=== PATIENT | female | born 2000 | race Caucasian/White ===

== ENCOUNTER 2019-11-16 12:42 | Emergency (ER) | payer OTHER, SELFPAY ==
[2019-11-16 12:53] VITALS: BP 126/65; PULSE 80; RESP 16; TEMP 37; O2SAT 98
--- NOTE | 2019-11-16 13:02 | ED.URI ---
HPI - URI/Sore Throat General Chief Complaint: Upper Respiratory Infection Stated Complaint: Ear/Nose/Throat History of Present Illness HPI Narrative: This is a 18-year-old female comes in complaining of a sore throat this morning states she had a low-grade fever denies taking anything for her symptoms. She was worried about having a strep due to somebody in the house was positive for strep yesterday. Had a discussion with patient that she might have come to early and we would send off a culture to confirm Related Data Allergies Allergy/AdvReac Type Severity Reaction Status Date / Time No Known Allergies Allergy Verified 11/16/19 13:05 Review of Systems Review of Systems: Narrative: CONSTITUTIONAL: reports fever, chill clear no she does not have a fever but she patients, or sweats. EYES: Denies visual changes, redness, or discharge. ENT: Denies rhinorrhea, congestion, positive sore throat, or otalgia. CARDIOVASCULAR:Denies chest pain, palpitations, or edema. RESPIRATORY: Denies cough or dyspnea. GASTROINTESTINAL: Denies abdominal pain, nausea, vomiting, or diarrhea. GENITOURINARY: Denies dysuria or hematuria. SKIN:[Denies rash or itching. MUSCULOSKELETAL:Denies back pain, joint pain, or myalgia. NEUROLOGIC: Denies headache, numbness, or weakness. PSYCHIATRIC:Denies anxiety or depression PMFSH Comments At time as signature, I have reviewed and agree with nursing past medical, social, surgical and family history. Please see nursing chart for further information. There is no relevant family history pertinent to the presenting complaint. Exam Narrative: Exam Narrative: GENERAL:Well-appearing, well-nourished, and in no acute distress. HEAD:Normocephalic, atraumatic. EYES: PERRLA and EOMI. ENT: Nares clear, no rhinorrhea or epistaxis. Mucous membranes moist. moderate clear Postnasal drainage NECK: Supple. CHEST: Clear to auscultation. No respiratory distress. HEART: Regular rate and rhythm. No murmur heard. Normal peripheral pulses. ABDOMEN: Soft, nontender, nondistended, normal active bowel sounds. EXTREMITIES: Normal range of motion. No edema. SKIN: Warm, dry, no rash. NEURO: No focal deficits. Alert and oriented x3. Exam looks essentially negative Course Vital Signs Vital signs: Vital Signs Temperature 98.6 F 11/16/19 12:53 Pulse Rate 80 11/16/19 12:53 Respiratory Rate 16 11/16/19 12:53 Blood Pressure 126/65 11/16/19 12:53 Pulse Oximetry 98 11/16/19 12:53 Temperature 98.6 F 11/16/19 12:53 Pulse Rate 80 11/16/19 12:53 Respiratory Rate 16 11/16/19 12:53 Blood Pressure 126/65 11/16/19 12:53 Pulse Oximetry 98 11/16/19 12:53 MDM - URI/Sore Throat Lab Data Labs: Strep Screen Presumptive Negative *(Reference Range: Negative)* Discharge Plan Discharge Clinical Impression: Pharyngitis Qualifiers: Pharyngitis/tonsillitis etiology: unspecified etiology Qualified Code(s): J02.9 - Acute pharyngitis, unspecified Patient Disposition: Home, Self-Care Condition: Stable Instructions: Antibiotic Form, Pharyngitis (ED) Additional Instructions: Your strep test today was negative. A throat culture will be sent to the laboratory for further testing. IF the test is positive, you will receive a phone call within 48 hours and an appropriate antibiotic will be initiated at that time. You will not receive a phone call if the test is negative. Until the throat culture proves otherwise, you should proceed with treating this is as a viral pharyngitis. Salt water gargles may alleviate some of your throat discomfort. Take Tylenol and/or ibuprofen per the package instructions for pain/fever. Go to the ER if your symptoms become worse of if ANY new symptoms develop Prescriptions: New cetirizine [Zyrtec] 10 mg tablet 10 mg PO DAILY PRN (Reason: allergy symptoms) Qty: 30 RF: 0 Follow-up/Referrals: UNKNOWN,DOCTOR [Primary Care Provider] -
== END 2019-11-16 13:25 | disposition home or self-care (01) ==
PROVIDERS: Emergency Provider Nurse Practitioner Family
DX: J02.9 Acute pharyngitis, unspecified (principal)
CPT/HCPCS: 87081; 87880; 99213; G0463

== ENCOUNTER 2020-01-04 09:52 | Emergency (ER) | payer OTHER, SELFPAY ==
[2020-01-04 09:58] VITALS: BP 121/70; PULSE 83; RESP 14; TEMP 36.3; O2SAT 100
--- NOTE | 2020-01-04 10:22 | ED.URI ---
HPI - URI/Sore Throat General Chief Complaint: Upper Respiratory Infection Stated Complaint: sore throat Time Seen by Provider: 01/04/20 10:05 Source: patient and RN notes reviewed Mode of arrival: ambulatory Limitations: no limitations History of Present Illness HPI Narrative: Patient presents today complaining of sore throat, congestion, postnasal drip since yesterday. Denies fever, cough, ear pain, nausea, vomiting, diarrhea, headache. Denies history of seasonal allergies. Currently rates her sore throat 11/16 and has tried no [id number] interventions prior to arrival. Patient tried to go to work today, but was told she needed to come in for evaluation. MD elicited complaint: sore throat Related Data Home Medications Medication Instructions Recorded Confirmed valacyclovir 500 mg PO DAILY 01/04/20 01/04/20 Allergies Allergy/AdvReac Type Severity Reaction Status Date / Time No Known Allergies Allergy Verified 01/04/20 10:08 Review of Systems Review of Systems: Narrative: CONSTITUTIONAL: Denies body aches, fever, chills, or sweats. EYES: Denies visual changes, redness, or discharge. ENT: Denies rhinorrhea, or otalgia.+Congestion, sore throat, postnasal drip CARDIOVASCULAR: Denies chest pain, palpitations, or edema. RESPIRATORY: Denies cough or dyspnea. GASTROINTESTINAL: Denies abdominal pain, nausea, vomiting, or diarrhea. GENITOURINARY: Denies dysuria or hematuria. SKIN: Denies rash, itching, or wounds. MUSCULOSKELETAL: Denies back pain, joint pain, or myalgia. NEUROLOGIC: Denies headache, numbness, tingling, or weakness. PSYCH: Denies depression or anxiety. PMFSH Comments At time of signature, I have reviewed and agree with nursing past medical, surgical, social and family history unless otherwise noted. Please see nursing chart for further information. There is no relevant family history pertinent to the presenting complaint Exam Narrative: Exam Narrative: GENERAL: Well-appearing, well-nourished, and in no acute distress. HEAD: Normocephalic, atraumatic. EYES: EOMI. No redness or drainage. Conjunctivae normal. ENT: Mucous membranes pink and moist. Nares clear. No rhinorrhea. TMs normal bilaterally. Throat normal. Uvula midline. NECK: Normal AROM. Supple. No lymphadenopathy. CHEST: No respiratory distress. Clear to auscultation. HEART: Regular rate and rhythm. No murmur appreciated. Normal peripheral pulses. EXTREMITIES: Normal range of motion. No edema. SKIN: Warm, dry, no rash. Capillary refill normal. Normal skin turgor. NEURO: No focal deficits. Alert and oriented x3. Gait steady. PSYCH: Normal affect. No signs of depression or anxiety. Course Vital Signs Vital signs: Vital Signs Temperature 97.3 F L 01/04/20 09:58 Pulse Rate 83 01/04/20 09:58 Respiratory Rate 14 01/04/20 09:58 Blood Pressure 121/70 01/04/20 09:58 Pulse Oximetry 100 01/04/20 09:58 Temperature 97.3 F L 01/04/20 09:58 Pulse Rate 83 01/04/20 09:58 Respiratory Rate 14 01/04/20 09:58 Blood Pressure 121/70 01/04/20 09:58 Pulse Oximetry 100 01/04/20 09:58 Reviewed. Pt has been instructed to follow up with her PCP regarding her elevated blood pressure today. MDM - URI/Sore Throat Differential Diagnosis Differential diagnosis: Likely upper respiratory infection, otitis media, sinusitis, viral infection, pharyngitis and other (Strep throat) Lab Data Attestation: I reviewed the patient's lab results. Labs: Strep Screen Presumptive Negative *(Reference Range: Negative)* Critical Care Time Critical Care Time Critical Care Time: No Discharge Plan Discharge Clinical Impression: Acute seasonal allergic rhinitis Patient Disposition: Home, Self-Care Condition: Stable Instructions: Allergies (ED) Additional Instructions: Your rapid strep swab was negative today at [facility]. You will be notified in a few days if the culture comes back positive f
== END 2020-01-04 10:30 | disposition home or self-care (01) ==
PROVIDERS: Emergency Provider Nurse Practitioner
DX: J30.2 Other seasonal allergic rhinitis (principal)
CPT/HCPCS: 87081; 87880; 99213; G0463

== ENCOUNTER 2020-03-19 17:07 | Emergency (ER) | payer OTHER, SELFPAY ==
[2020-03-19 17:14] VITALS: BP 138/64; PULSE 87; RESP 16; TEMP 37.2; O2SAT 100
--- NOTE | 2020-03-19 17:35 | ED.GENADULT ---
HPI - General Adult General Chief complaint: Nausea/Vomiting/Diarrhea Stated complaint: diarrhea/fever/nausea Time Seen by Provider: 03/19/20 17:37 Source: patient Mode of arrival: ambulatory Limitations: no limitations History of Present Illness HPI narrative: 19-year-old female patient presents [facility] with complaints of fever and nausea and diarrhea. Patient states that she is currently but has not seen her OB yet. Patient states that her last period was in December. Patient states that she found out on Father's Day that she was . Patient states that she has had some nausea which is not new but recently started having some diarrhea for the past 2 days and then today checked her temperature and states that her temperature was approximately 100.8. Patient states that she did not take anything for her symptoms and came here and states she was told that her temperature was 98. Patient states that she has not been exposed to COVID-19 that she is aware of but still fearful due to the fact that she is and has a fever. Related Data Home Medications Medication Instructions Recorded Confirmed valacyclovir 500 mg PO DAILY 01/04/20 03/19/20 Allergies Allergy/AdvReac Type Severity Reaction Status Date / Time red (food color) Allergy Unknown Verified 03/19/20 17:34 Review of Systems Review of Systems: Narrative: CONSTITUTIONAL: Positive subjective fever, denies chills, or sweats. EYES: Denies visual changes, redness, or discharge. ENT: Denies rhinorrhea, congestion, sore throat, or otalgia. CARDIOVASCULAR: Denies chest pain, palpitations, or edema. RESPIRATORY: Denies cough or dyspnea. GASTROINTESTINAL: Denies abdominal pain, positive nausea, denies vomiting, positive diarrhea. GENITOURINARY: Denies dysuria or hematuria. SKIN: Denies rash or itching. MUSCULOSKELETAL: Denies back pain, joint pain, or myalgia. NEUROLOGIC: Denies headache, numbness, or weakness. PSYCHIATRIC: Denies anxiety or depression. [facility] Social History Social History Gender identity (if verbalized by the patient): Female Comments At the time of my signature I agree with nursing past medical history, surgical, social, and family history. There is no relevant family history pertinent to the presenting complaint. Exam Narrative: Exam Narrative: GENERAL: Well-appearing, well-nourished, and in no acute distress. HEAD: Normocephalic, atraumatic. EYES: PERRLA and EOMI. ENT: Nares clear, no rhinorrhea or epistaxis. Mucous membranes moist. Posterior pharynx no erythema, tonsil enlargement, exudates or lesions present. Bilateral TMs are clear no erythema or foreign bodies in the canal. NECK: Supple. No lymphadenopathy CHEST: Clear to auscultation. No respiratory distress. HEART: Regular rate and rhythm. No murmur heard. Normal peripheral pulses. ABDOMEN: Soft, nontender, nondistended, normal active bowel sounds. No CVA tenderness on percussion EXTREMITIES: Normal range of motion. No edema. SKIN: Warm, dry, no rash. NEURO: No focal deficits. Alert and oriented x3. Course Vital Signs Vital signs: Vital Signs Temperature 37.2 C 03/19/20 17:14 Pulse Rate 87 03/19/20 17:14 Respiratory Rate 16 03/19/20 17:14 Blood Pressure 138/64 03/19/20 17:14 Pulse Oximetry 100 03/19/20 17:14 Temperature 37.2 C 03/19/20 17:14 Pulse Rate 87 03/19/20 17:14 Respiratory Rate 16 03/19/20 17:14 Blood Pressure 138/64 03/19/20 17:14 Pulse Oximetry 100 03/19/20 17:14 Vital signs reviewed. The patient has been informed that they may have pre-hypertension or Hypertension based on a BP reading in the department. I recommend that the patient call the primary care provider listed on their discharge instructions or a physician of their choice this week to arrange follow up for further evaluation of possible pre-hypertension or Hypertension Medical Decision Making
== END 2020-03-19 17:58 | disposition home or self-care (01) ==
PROVIDERS: Emergency Provider Nurse Practitioner Family; PCP Obstetrics & Gynecology
DX: Z20.828 Contact with and (suspected) exposure to other viral communicable diseases (principal); R50.9 Fever, unspecified
CPT/HCPCS: 99213; G0463

== ENCOUNTER 2020-12-05 09:41 | Emergency (ER) | payer OTHER, SELFPAY ==
[2020-12-05 09:50] VITALS: BP 138/78; PULSE 91; RESP 18; TEMP 36.7; O2SAT 100
--- NOTE | 2020-12-05 10:09 | ED.DENTAL ---
HPI - Dental/Oral General Chief complaint: Dental/Oral Stated complaint: Swollen Mouth Time Seen by Provider: 12/05/20 10:10 Source: patient, RN notes reviewed and old records reviewed Mode of arrival: ambulatory Limitations: no limitations History of Present Illness HPI Narrative: 19 year old female who presents to [facility] with complaints of dental pain with increase over the past 1 week duration. Patient is 1 month post and has been taking Ibuprofen and also some left over [place] from her recent section. Patient has impacted wisdom teeth X4 with pain worse on right side and facial swelling noted. Patient has swelling and redness of gums surrounding back wisdom teeth with right side with noted abscess, no drainage noted. Patient able to control own secretions with no difficulty swallowing or any shortness of breath, no trismus noted. MD Complaint: tooth pain Location: Tooth # ([id number],32,[id number]) Onset (ago): week(s) (1) Duration: constant Severity: severe Severity scale (1-10): 10 Relieving factors: nothing Exacerbating factors: chewing and cold Context: history of dental caries and poor dental care Treatment prior to arrival: oral analgesic Related Data Home Medications Medication Instructions Recorded Confirmed valacyclovir 500 mg PO DAILY 01/04/20 12/05/20 Allergies Allergy/AdvReac Type Severity Reaction Status Date / Time red (food color) Allergy Unknown Verified 03/19/20 17:34 Review of Systems Review of Systems: Narrative: CONSTITUTIONAL: States low grade fever yesterday of 100.6F, no chills, or sweats. EYES: Denies visual changes, redness, or discharge. ENT: Denies rhinorrhea, congestion, sore throat, or otalgia positive for dental pain and facial swelling to right side of face. CARDIOVASCULAR: Denies chest pain, palpitations, or edema. RESPIRATORY: Denies cough or dyspnea. GASTROINTESTINAL: Denies abdominal pain, nausea, vomiting, or diarrhea. GENITOURINARY: Denies dysuria or hematuria. SKIN: Denies rash or itching. MUSCULOSKELETAL: Denies back pain, joint pain, or myalgia. NEUROLOGIC: Denies headache, numbness, or weakness. PSYCHIATRIC: Denies anxiety or depression. All systems reviewed & are unremarkable except as noted in HPI and below PMFSH Past Medical History Medical History (Updated 12/06/20 @ 00:00 by Background Daemon) Genital herpes Surgical History Surgical History (Updated 12/05/20 @ 10:26 by Anastacia Braga NP) Previous section Family History Family History (Updated 12/09/20 @ 08:21 by Anastacia Braga NP) Other No significant family history Social History Social History (Updated 12/05/20 @ 10:50 by Anastacia Braga NP) Smoking status: Never smoker Alcohol intake: current Alcohol use details: rare social Substance use: never Living arrangements: with family Gender identity (if verbalized by the patient): Female Comments At time of signature, agree with nursing past medical, surgical, social and family history. There is no relevant family history pertinent to the presenting complaint Exam Narrative: Exam Narrative: GENERAL: Well-appearing, well-nourished, and in no acute distress. HEAD: Normocephalic, atraumatic. EYES: PERRLA and EOMI. ENT: Nares clear, no rhinorrhea or epistaxis. Mucous membranes moist.TM's normal with good light reflex, throat pink with no swelling or tonsil enlargement, impaction of all 4 wisdom teeth with pain increase to right upper and lower greater that left with facial swelling noted. Abscess of right upper and lower wisdom teeth noted, no Sergio angina noted or trismus noted, patient is able to control own secretions NECK: Supple.no lymphadenopathy CHEST: Clear to auscultation. No respiratory distress.SAO2 100% on room air. HEART: Regular rate and rhythm. No murmur heard. Normal peripheral pulses. ABDOMEN: Soft, nontender, nondistended, normal active bowel sounds. EXTREMITIES: Normal range of motion. No edema
== END 2020-12-05 10:46 | disposition home or self-care (01) ==
PROVIDERS: Emergency Provider Registered Nurse
DX: O99.63 Diseases of the digestive system complicating the puerperium (principal); K04.7 Periapical abscess without sinus
CPT/HCPCS: 99213; G0463

== ENCOUNTER → 2022-04-30 10:02 | Outpatient (CLI) | payer OTHER, SELFPAY ==
--- NOTE | ~2022-04-30 | US_ITS ---
EXAMINATION: US OB <= 14 weeks fetus DATE: 04/30/2022 10:29 INDICATION: First trimester dating and viability assessment TECHNIQUE: Real-time pelvic transabdominal and transvaginal ultrasound was performed. COMPARISON: None. FINDINGS: The uterus measures 12.3 x 6.2 x 8.0 cm. There is an intrauterine gestational sac. A yolk sac is identified. heart motion is identified measuring 171 beats per minute (bpm) by M-mode Do ppler. The crown rump length measures 5.0 cm , which correlates with an estimated gestational a ge of 11 weeks and 5 day(s) (+/-) 7 day(s). The right ovary measures 2.1 x 1.5 x 2.5 cm. The left ovary measures 2.2 x 1.5 x 1.7 cm. There is nor mal vascular flow in the ovaries. There is no free fluid in the pelvis. IMPRESSION: 1. Live intrauterine with an estimated gestational age of 11 weeks and 5 day(s) (+/-) 7 day (s) and an estimated delivery date of 11/14/2022. Reviewed, dictated and finalized at location B. IMPRESSION: 1. Live intrauterine with an estimated gestational age of 11 weeks an d 5 day(s) (+/-) 7 day(s) and an estimated delivery date of 11/14/2022.
== END ==
PROVIDERS: PCP Obstetrics & Gynecology; Visit Provider Obstetrics & Gynecology
DX: O36.8910 Maternal care for other specified fetal problems, first trimester, not applicable or unspecified (principal); Z3A.11 11 weeks gestation of pregnancy
CPT/HCPCS: 76801

== ENCOUNTER → 2022-06-19 09:33 | Outpatient (CLI) | payer OTHER, SELFPAY ==
--- NOTE | ~2022-06-19 | US_ITS ---
EXAMINATION: US OB /maternal detail DATE: 06/19/2022 10:42 INDICATION: Second trimester anatomic survey TECHNIQUE: Real-time ultrasound of the pelvis was performed. COMPARISON: None. FINDINGS: There is a single living fetus in transverse lie. The placenta is posterior and 5.9 cm from the inter nal cervical os. The cervical length is 5.7 cm. heart rate is 154 beats per minute (bpm). Feta l cardiac activity and movement are noted. The amniotic fluid index is subjectively normal. The examination is slightly limited by the patient's body habitus. There is suboptimal evaluation of the heart, spine, and urinary bladder. The following anatomy was identified as normal: 3 vessel cord cord insertion kidneys stomach diaphragm ventricles cisterna magna cerebellum The following biometric data were obtained: Biparietal diameter (BPD): 4.0 cm; head circumference (HC): 15.8 cm; abdominal circumference (AC): 13 .5 cm; femur length (FL): 2.9 cm. Estimated weight is 263 g +/- 39 g, which correlates with the 25th percentile when 11/11/2022 is used as estimated date of delivery. As single measurements, these parameters are each equal to the following estimated gestational ages w ith ranges of +/- 2 standard deviations: BPD: 18 weeks 1 days +/- 1 weeks 5 days. HC: 18 weeks 5 days +/- 1 weeks 3 days. AC: 19 weeks 0 days +/- 2 weeks 0 days. FL: 18 weeks 6 days +/- 1 weeks 6 days. estimated gestational age based solely on measurements from this exam is 18 weeks 5 days +/- 1 weeks 2 days. IMPRESSION: 1. Single living fetus in transverse lie. 2. Estimated weight is 263 g +/- 39 g, which correlates with the 25th percentile when 11/11/2022 is used as estimated date of delivery. 3. Suboptimal evaluation of the heart, spine, and urinary bladder. Reviewed, dictated and finalized at location A. IMPRESSION: 1. Single living fetus in transverse lie. 2. Estimated weight is 263 g +/- 39 g, which correlates with the 25th per centile when 11/11/2022 is used as estimated date of delivery. 3. Suboptimal evaluation of the heart, spine, and urinary bladder.
== END ==
PROVIDERS: PCP Obstetrics & Gynecology; Visit Provider Obstetrics & Gynecology
DX: Z34.92 Encounter for supervision of normal pregnancy, unspecified, second trimester (principal); Z3A.18 18 weeks gestation of pregnancy
CPT/HCPCS: 76805

== ENCOUNTER 2022-06-19 10:19 | Emergency (ER) | payer OTHER, SELFPAY ==
--- NOTE | ~2022-06-19 | XR_ITS ---
EXAMINATION: XR foot RT min 3V DATE: 06/19/2022 10:58 INDICATION: Right foot pain. TECHNIQUE: 4 views of right foot were obtained. COMPARISON: None. FINDINGS: Bone alignment is normal. No fracture. Joint spaces are well maintained. IMPRESSION: 1. Normal right foot. Reviewed, dictated and finalized at location A. IMPRESSION: 1. Normal right foot.
[2022-06-19 10:30] VITALS: BP 113/70; PULSE 85; RESP 16; TEMP 36.4; O2SAT 99
--- NOTE | 2022-06-19 10:47 | ED.LOWEXIN ---
HPI - Extremity Injury (Lower) General Chief Complaint: Extremity Injury, Lower Stated Complaint: rt ankle/foot injury Source: patient Mode of arrival: wheelchair Limitations: no limitations History of Present Illness HPI Narrative: This is a 21-year-old female who was within her first trimester of who states she had a fall this morning and twisted her ankle and heard a pop. Patient denies taking anything for her symptoms says that her foot hurts when she applies pressure and she would like an x-ray. Had a discussion with patient and she is able to move her right foot good circulation Splane the risk of x-ray due to the radiation patient and her mother would like for her to have x-ray at this time. Patient willing to sign paperwork. Related Data Allergies Allergy/AdvReac Type Severity Reaction Status Date / Time red (food color) Allergy Unknown Verified 03/19/20 17:34 Review of Systems Review of Systems: left ankle pain All systems reviewed & are unremarkable except as noted in HPI and below PMFSH Past Medical History Medical History (Updated 06/19/22 @ 10:55 by Chris Jones NP) Genital herpes Surgical History Surgical History (Updated 12/05/20 @ 10:26 by Anastacia Braga NP) Previous section Family History Family History (Updated 12/09/20 @ 08:21 by Anastacia Braga NP) Other No significant family history Social History Social History (Updated 12/05/20 @ 10:50 by Anastacia Braga NP) Smoking status: Never smoker Alcohol intake: current Alcohol use details: rare social Substance use: never Gender identity (if verbalized by the patient): Female Exam Narrative: GENERAL:Well-appearing, well-nourished, and in no acute distress. HEAD:Normocephalic, atraumatic. EYES: PERRLA ENT: Nares clear, no rhinorrhea or epistaxis. Mucous membranes moist. CHEST: Easy rise and fall of chest wall no respiratory distress. HEART: Regular rate and rhythm. decreased peripheral pulses. Painfulness with ambulation ABDOMEN: Soft, nontender, nondistended, . EXTREMITIES:decreased range of motion. No edema. SKIN: Warm, dry, no rash. NEURO: No focal deficits. Alert and oriented x3. Patient currently had a conversation with patient and about radiation exposure to child in first trimester Course Course Emergency Course: Xray no acute abnormalities noted Level of Care: Express Care Visit Vital Signs Vital signs: Vital Signs Temperature 97.6 F 06/19/22 10:30 Pulse Rate 85 06/19/22 10:30 Respiratory Rate 16 06/19/22 10:30 Blood Pressure 113/70 06/19/22 10:30 Pulse Oximetry 99 06/19/22 10:30 Temperature 97.6 F 06/19/22 10:30 Pulse Rate 85 06/19/22 10:30 Respiratory Rate 16 06/19/22 10:30 Blood Pressure 113/70 06/19/22 10:30 Pulse Oximetry 99 06/19/22 10:30 MDM - Extremity Injury (Lower) Differential Diagnosis Differential diagnosis: Likely ankle sprain and strain, fracture of toe and ankle fracture Critical Care Time Critical Care Time Critical Care Time: No Discharge Plan Discharge Clinical Impression: Ankle sprain and strain Patient Disposition: Home, Self-Care Condition: Stable Instructions: Antibiotic Form, Ankle Sprain (DC) Additional Instructions: TYLENOL FOR THE PAIN DUE TO YOUR THAT IS ALL I ADVISE FOR PAIN RANDY WRAP CONTINUE TO STAY OFF LEG MUCH POSSIBLE FOLLOW UP WITH pcp IF YOUR FOOT CONTINUES TO BOTHER YOU IN 2-4 WEEKS WE COMPLETED A XRAY WHICH SHOW A NORMAL XRAY AT THIS TIME Follow-up/Referrals: UNKNOWN,DOCTOR [Primary Care Provider] - Stand Alone Forms: Work/School Release IP Time of Disposition: :16
== END 2022-06-19 11:27 | disposition home or self-care (01) ==
PROVIDERS: Emergency Provider Nurse Practitioner Family
DX: O9A.211 Injury, poisoning and certain other consequences of external causes complicating pregnancy, first trimester (principal); Z3A.00 Weeks of gestation of pregnancy not specified; S93.401A Sprain of unspecified ligament of right ankle, initial encounter; S96.911A Strain of unspecified muscle and tendon at ankle and foot level, right foot, initial encounter; W19.XXXA Unspecified fall, initial encounter
CPT/HCPCS: 73630; 99213; G0463

== ENCOUNTER → 2022-08-07 10:51 | Outpatient (CLI) | payer OTHER, SELFPAY ==
--- NOTE | ~2022-08-07 | US_ITS ---
EXAMINATION: US OB follow up DATE: 08/07/2022 11:29 INDICATION: Suboptimal anatomic survey. TECHNIQUE: Real-time ultrasound of the pelvis was performed. COMPARISON: Ultrasound 06/19/2022, 04/30/2022 FINDINGS: There is a single living fetus in transverse lie. The placenta is posterior, 9.9 cm from the cervix. The cervical length is normal. heart rate is 150 beats per minute (bpm). The amniotic fluid vo lume is subjectively normal. The following biometric data were obtained: Biparietal diameter (BPD): 6.1 cm; head circumference (HC): 22.7 cm; abdominal circumference (AC): 20 .5 cm; femur length (FL): 4.8 cm. These measurements are concordant. Estimated weight is 798 g +/- 120 g, which correlates with the 10th percentile when 11/11/22 is u sed as estimated date of delivery. As single measurements, these parameters are each equal to the following estimated gestational ages: BPD: 24 weeks 5 days. HC: 24 weeks 5 days. AC: 25 weeks 0 days. FL: 26 weeks 0 days. estimated gestational age based solely on measurements from this exam is 25 weeks 1 days +/- 1 weeks 5 days. The heart is normal. The visualized portions of the spine are normal. The bladder is norm al. IMPRESSION: 1. Single living fetus in transverse lie. 2. Estimated weight is 798 g +/- 120 g, which correlates with the 10th percentile when 11/11/22 is used as estimated date of delivery. Note that estimated date of delivery based on the ultrasound f rom 04/30/2022 would be 11/14/2022. 3. Normal heart, spine, and bladder. Reviewed, dictated and finalized at location A. IREMENTS ANALYST IMPRESSION: 1. Single living fetus in transverse lie. 2. Estimated weight is 798 g +/- 120 g, which correlates with the 10th p ercentile when 11/11/22 is used as estimated date of delivery. Note that estimate d date of delivery based on the ultrasound from 04/30/2022 would be 11/14/2022. 3. Normal heart, spine, and bladder.
== END ==
PROVIDERS: PCP Obstetrics & Gynecology; Visit Provider Obstetrics & Gynecology
DX: Z34.93 Encounter for supervision of normal pregnancy, unspecified, third trimester (principal)
CPT/HCPCS: 76816

== ENCOUNTER 2025-02-02 15:55 | Outpatient (CLI) | payer OTHER, SELFPAY ==
--- NOTE | ~2025-02-02 | US_ITS ---
EXAM EXAMINATION: US OB follow up DATE: 02/02/2025 20:30 CDT INDICATION: Dating. No prior ultrasound. COMPARISON: 10/09/2024 and 09/08/2024 TECHNIQUE: Real-time transabdominal obstetric ultrasound. FINDINGS: 8 para 3 Last menstrual period is given as 09/19/2024 Estimated date of delivery by last menstrual period is 06/26/2025 There is a single intrauterine gestation in variable presentation. The placenta is anterior, without placenta previa Dynamic images of the cervix were not on the submitted images. cardiac activity and movement is noted with a heart rate of 143 beats per minute. The following biometric data were obtained: Biparietal diameter (BPD): 4.4 cm; head circumference (HC): 18.1 cm; abdominal circumference (AC): 15.11 cm; femur length (FL): 2.9 cm. These measurements are concordant. Estimated weight is 311.1 g +/- 46.7 g, which correlates with the 65th percentile when 06/24/20 25 is used as estimated date of delivery. As single measurements, these parameters are each equal to the following estimated gestational ages: BPD: 19 weeks 2 days. HC: 20 weeks 3 days. AC: 20 weeks 2 days. FL: 19 weeks 0 days. estimated gestational age based solely on measurements from this exam is 19 weeks 5 days +/- 1 week 3 days. IMPRESSION: Single intrauterine gestation in variable presentation with cardiac activity identified. Approximate gestational age is 19 weeks and 5 days Reviewed, dictated and finalized at location A. IMPRESSION: Single intrauterine gestation in variable presentation with cardiac activ ity identified. Approximate gestational age is 19 weeks and 5 days
--- OUTSIDE RECORDS SUMMARY | 2025-02-02 15:58 | XMS_ITS | Clinical Summary ---
Author Organization [facility] [address] [place] [address] Care Team Providers Care Bed Bug Exterminator Name Role Phone Unavailable Primary Care Provider Unavailabl e Source Comments [facility],non-owned Affiliates and Associated Physician Practices is amultiple site organization consisting of ambulatory clinics and hospital sitesin [place], [place], [place] and [place]. This disclosure is being madepursuant to the Care Everywhere program and may not contain all information available regarding this patient. Last updated 18.[facility] Allergies Active Allergy Reactions Criticality Noted Date Comments Red Dye Urticaria Medium 07/29/2020 Shellfish Allergy Rash Medium 07/29/2020 Medications * Be aware that medications may not be up to date on this document. Alwaysverify current medications with the patient. PARoxetine (PAXIL) 10 MG tabletIndication s:Generalized Anxiety Disorder Take 10 mg by mouth once daily Reasons: Generalized Anxiety Disorder Active Vit-Fe Fumarate-FA ( VITAMIN) 28-0.8 MG tablet Take 1 tablet by mouth once daily Active valACYclovir (VALTREX) 1 GM tablet Take 500 mg by mouth every 12 hours Active terconazole (TERAZOL 3) 80 MG vaginal suppository Insert 1 suppository into the vagina at bedtime Active Active Problems Problem Noted Date Diagnosed Date Encounter for anatomic survey 07/29/2020 Overview (07/29/2020): Order for malformation screen: heart, face, kidneys not seen on outside scan. 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 Body Mass Index - - Plan of Treatment Health Maintenance Due Date Last Done Comments HIV SCREENING 2013 HPV VACCINE (1 - 3-dose series) 2013 HEPATITIS C SCREENING 12/18/2016 DTAP/TDAP/TD VACCINES (1 - Tdap) 2017 HEPATITIS B VACCINE (1 of 3 - 19+ 3-dose series) 2017 COVID-19 VACCINE (1 - 2023- season) 2024 DEPRESSION SCREENING 09/09/2024 INFLUENZA VACCINE (Season Ended) 2025 07/15/2013, 06/07/2011, 08/15/2010, Additional history exists ZOSTER VACCINE (1 of 2) 2048 HIB VACCINE Aged Out No longer eligi ble based on patient's age to complete this topic MENINGOCOCCAL (Group B) VACCINE SHARED DECISION-MAKING Aged Out No longer eligible based on patient's age to complete this topic MENINGOCOCCAL GROUPS A/C/Y/W VACCINE Aged Out No longer eligible based on patient's age to complete this topic PNEUMOCOCCAL VACCINE Aged Out No long er eligible based on patient's age to complete this topic Insurance [facility]
--- OUTSIDE RECORDS SUMMARY | 2025-02-02 15:58 | XMS_ITS | Referral Summary ---
Author Organization [facility] Address [address] [place] [address] Care Team Providers Care Hotel Office Manager Name Role Phone Rah Hein MD Primary Care Provider Carlos Rizzo MD Unavailable [phone] Bernice Borrego NP Unavailable [phone] Allergies Active Allergy Reactions Criticality Noted Date Comments Red Dye Unknown 09/18/2019 Montelukast Rash Medium 12/27/2023 Medications etonogestreL-et hinyl estradioL (NUVARING, ELURYNG) 0.12-0.015 mg/24 hr vaginal ring INSERT 1 RING VAGINALLY EVERY MONTH 3 Active buPROPion XL (WELLBUTRIN XL) 150 mg 24 hr tablet Take 1 tablet (150 mg total) by mouth every morning 4 Active ARIPiprazole (ABILIFY) 15 mg tablet 1 tablet (15 mg total) 4 Active Active Problems Problem Noted Date Diagnosed Date Bipolar affective disorder, current episode mixe d 06/25/2024 Overview (06/25/2024): Managed by Psychiatry Assessment & Plan (06/25/2024 10:03 AM CDT): - chronic condition - has diagnosis of depression, anxiety, Bipolar disorder - depression and depression, mood instability not at goal - reports past history of PTSD (from childhood trauma), anxiety, depression and Bipolar disorder - used to do counseling via [facility], she is now doing counseling through a [facility]ism funded program - once a week - currently not on any medications but would like assistance with it - has not been on medication in 5-7 years and only was on medications briefly - hx of hospitalization for self harm attempt at age 15 - has been on Prozac 20 mg daily in past but no longer, no longer on Topamax 50 mg daily - currently on Abilify 15 mg daily and Wellbutrin - at times has alcohol overuse and over eating with emotional changes - she has had period of times that she has stopped her medications several times which she is aware of the issue in bipolar disorder --> as a results of this her Abilify will be changed into an injectable medication - Continue current management per psychiatry Allergic rhinitis 11/15/2023 Overview (11/15/2023): - started Singulair 11/30 - see my chart message Abnormal bruising 10/04/2023 Assessment & Plan (10/04/2023 1:47 PM ENDOSCOPE TECHNICIAN): -new complaint, acute -patient reports she 1st noticed this in the past week or so -denies any trauma to have caused bruising on legs, but does report her massages her legs most nights -denies any significant use of NSAIDs, but does report using melatonin 1-2 nights a week -lab work from 7 months ago looked normal, but will recheck blood counts and some vitamin levels for abnormalities Paresthesia of both lower extremities 10/04/2023 Assessment & Plan (10/04/2023 1:50 PM ENDOSCOPE TECHNICIAN): -new complaint, chronic -patient reports numbness and tingling in bilateral lower extremities after sitting for long periods of time, which when she stands up makes it difficult to walk -patient reports when she gets up and moving around the numbness and tingling subsides -patient reports history issues with sciatica when -patient encouraged to avoid sitting for long periods of time and if this becomes more frequently we can consider further management for it Family history of colon cancer in mother 024 Assessment & Plan (06/25/2024 9:58 AM CDT): - patient's mother was diagnosed with colon cancer at the age of 46. Maternal grandmother has history of breast as well as cervical cancer. Maternal father has history of lung as well as brain cancer - Recommended - Colonoscopy starting at age 40, or 10 years before the age that the immediate family member was diagnosed with cancer. This would be at age 36 - discussed possibility of Gi referral if she wants another opinion regarding these guidelines/recommendations (done on 01/2024 and on 06/2024) Assessment & Plan (01/12/2024 10:33 PM CDT): - patient's mother was diagnosed with colon cancer at the age of 46. Maternal grandmother has history of breast as well as cervical cancer. Maternal father has history of lung as well as brain cancer - Recommended - Colonoscopy starting at age 40, or 10 years before the age that the immediate family member was diagnosed with cancer. This would be at age 36 - discussed possibility of Gi referral if she wants another opinion regarding these guidelines/recommendations Family history of attention deficit hyperactivity disorder (ADHD) 09/24/2023 Assessment & Plan (01/12/2024 10:30 PM CDT): - concern for ADHD in patient - has family hx of ADHD in father and two younger brothers - established with psychiatry at [facility] but was told she should be off her phentermine as well for better evaluation - see plan under obesity for phentermine dose change Assessment & Plan (09/29/2023 10:34 PM ENDOSCOPE TECHNICIAN): - concern for ADHD in patient - has family hx of ADHD in father and two younger brothers - has an appointment with psychiatry in 2 weeks so will defer management at this time Moderate episode of recurrent major depressive d isorder 07/30/2023 Overview (06/25/2024): Managed by Psychiatry Assessment & Plan (06/25/2024 9:51 AM CDT): - chronic condition - has diagnosis of depression, anxiety, Bipolar disorder - depression and depression, mood instability not at goal - reports past history of PTSD (from childhood trauma), anxiety, depression and Bipolar disorder - used to do [facility] via [facility], she is now doing counseling through a [facility]ism funded program - once a week - currently not on any medications but would like assistance with it - has not been on medication in 5-7 years and only was on medications briefly - hx of hospitalization for self harm attempt at age 15 - has been on Prozac 20 mg daily in past but no longer, no longer on Topamax 50 mg daily - currently on Abilify 15 mg daily and Wellbutrin - at times has alcohol overuse and over eating with emotional changes - she has had period of times that she has stopped her medications several times which she is aware of the issue in bipolar disorder --> as a results of this her Abilify will be changed into an injectable medication - Continue current management per psychiatry Assessment & Plan (01/12/2024 10:38 PM CDT): - chronic condition - depression is better controlled - anxiety is not adequately controlled, worse - reports past history of PTSD (from childhood trauma), anxiety, depression and questionable bipolar disorder which she is being evaluated for along with ADHD - used to do [facility] via [facility], she is now doing counseling through a [facility]ism funded program - once a week - currently not on any medications but would like assistance with it - has not been on medication in 5-7 years and only was on medications briefly - hx of hospitalization for self harm attempt at age 15 - currently on Prozac 20 mg daily, started on last visit with big improvement in depression, she is also on Topamax 50 mg daily, Abilify 5 mg nightly - anxiety is still not at goal - Continue current management per psychiatry Assessment & Plan (09/24/2023 12:02 PM ENDOSCOPE TECHNICIAN): - chronic condition - depression is better controlled - anxiety is not adequately controlled, worse - reports past history of PTSD (from childhood trauma), anxiety, depression and questionable bipolar disorder - used to do counseling via [facility], she is now doing counseling through a [facility]ism funded program - once a week - currently not on any medications but would like assistance with it - has not been on medication in 5-7 years and only was on medications briefly - hx of hospitalization for self harm attempt at age 15 - currently on Prozac 20 mg daily, started on last visit with big improvement in depression - anxiety is still not at goal - has an appointment with a psychiatrist at October 10 in [facility] via her Therapist (states her therapist has a diagnosis for her that she can not treat her for it, has been told she may have ADHD as well by her therapist) - given she is about to see psychiatrist do not recommend initiation a new medication at this time for her anxiety, continue current management Assessment & Plan (07/30/2023 12:43 PM ENDOSCOPE TECHNICIAN): - chronic, worse - reports past history of PTSD (from childhood trauma), anxiety, depression and questionable bipolar disorder - used to do counseling via [facility], she is now doing counseling through a [facility]ism funded program - currently not on any medications but would like assistance with it - has not been on medication in 5-7 years and only was on medications briefly - hx of hospitalization for self harm attempt at age 15 - start Prozac 20 mg daily, can take 10 mg for 2 weeks at first - follow up in 6 weeks Pruritic rash 07/09/2023 Assessment & Plan (07/09/2023 12:06 PM CDT): - new diagnosis - unclear etiology - had a company evaluate her house for dust mites as she has had it before but none was found, told It may be dustmites and planning to get treatment for it - script sent in for steroid use for pruritus in mean time Pain in a tooth or teeth 05/09/2023 Assessment & Plan (05/09/2023 12:53 PM CDT): Continue Ibuprofen 600 mg twice daily as needed with food to avoid stomach upset. Only dental surgeon [facility] for her insurance is several hours away, saving up money. Discussed risk of [facility] NSAID use. Vapes nicotine containing substance 02/24/2023 Assessment & Plan (02/24/2023 3:28 PM CDT): - chronic use, not at goal control of cessation - noted to be using E-cigarette or vaping nicotine containing substance - discussed potential for lung diseases such as Vaping associated lung injury and unknown long -term consequences of Vaping Preventative health care 02/24/2023 Assessment & Plan (06/25/2024 10:01 AM CDT): - New or worsening conditions - obesity - Mental health: no significant psychiatric/mental health conditions affecting her day to day functioning, managing on her own. - Dental health: Recommend regular dental care and cleaning. Discussed importance of regular tooth brushing, flossing, and dental visits. - Nutrition: Stressed importance of moderation in sodium/caffeine intake, saturated fat and cholesterol, caloric balance, sufficient intake of fresh fruits, vegetables - Exercise: Stressed the importance of regular exercise - Immunizations: Age and sex appropriate immunizations reviewed and offered - Cervical Cancer screening: up to date, follows with Dr. Matthias EM - Breast Cancer screening: n/a - Colon cancer screening: n/a - Lung cancer screening: n/a - control: on Nuvaring Assessment & Plan (02/24/2023 3:29 PM CDT): - New or worsening conditions - obesity, and fatigue, see A&P section - Mental health: no significant psychiatric/mental health conditions affecting her day to day functioning, managing on her own. - Dental health: Recommend regular dental care and cleaning. Discussed importance of regular tooth brushing, flossing, and dental visits. - Nutrition: Stressed importance of moderation in sodium/caffeine intake, saturated fat and cholesterol, caloric balance, sufficient intake of fresh fruits, vegetables - Exercise: Stressed the importance of regular exercise - Immunizations: Age and sex appropriate immunizations reviewed and offered - Cervical Cancer screening: up to date, follows with Dr. Matthias EM - Breast Cancer screening: n/a - Colon cancer screening: n/a - Lung cancer screening: n/a - control: on Nuvar Class 3 severe obesity due t o excess calories without serious comorbidity with body mass index (BMI) of 45.0 to 49.9 in adult 02/15/2023 Assessment & Plan (06/25/2024 9:53 AM CDT): Wt Readings from Last 3 Encounters: 06/25/24 119.3 kg (263 lb 1.6 oz) 12/27/23 97.5 kg (214 lb 14.4 oz) 10/04/23 96.6 kg (212 lb 14.4 oz) Body mass index is 48.11 kg/m . - chronic condition, not at goal - worse, weight gain of 50 lbs since being off Phentermine - BMI Follow-up includes: nutrition counseling, exercise counseling and education provided - has tried diet changes, lifestyle modifications for over 6 months without significant success - one of her main issues is food craving and overeating, at times uses food for comfort, at times endorses binge eating - No hx of seizures, no hx of kidneys tones - in past lost weight while on Phentermine 15 mg daily at weight of 263, and got down to 214 lbs 12/2023 - in past got discontinued per psychiatry as she was getting evaluated for ADHD - she plans to let me know after consulting with psychiatry and when she is doing well with her mental health medications, to restart therapy Assessment & Plan (01/12/2024 10:29 PM CDT): Wt Readings from Last 3 Encounters: 12/27/23 97.5 kg (214 lb 14.4 oz) 10/04/23 96.6 kg (212 lb 14.4 oz) 09/24/23 97.5 kg (214 lb 14.4 oz) Body mass index is 39.3 kg/m . - chronic condition, not at goal - BMI Follow-up includes: nutrition counseling, exercise counseling and education provided - has tried diet changes, lifestyle modifications for over 6 months without significant success - one of her main issues is food craving and overeating, at times uses food for comfort, at times endorses binge eating - No hx of seizures, no hx of kidneys tones - started Phentermine 15 mg daily at weight of 263, current weight is 214 12/2023 - currently on Phentermine 30 mg daily --> psychiatry has told her to be off medication as she is hyperactive and getting evaluated for ADHD as well --> change dose to phentermine 15 mg daily, script sent in for 30 days after which she can discontinue medication Assessment & Plan (09/24/2023 12:02 PM ENDOSCOPE TECHNICIAN): Wt Readings from Last 3 Encounters: 09/24/23 97.5 kg (214 lb 14.4 oz) 07/30/23 99.8 kg (220 lb) 07/09/23 102.5 kg (226 lb) Body mass index is 39.3 kg/m . - chronic condition, not at goal but improving, weight loss noted - BMI Follow-up includes: nutrition counseling, exercise counseling and education provided - has tried diet changes, lifestyle modifications for over 6 months without significant success - one of her main issues is food craving and overeating, at times uses food for comfort, at times endorses binge eating - No hx of seizures, no hx of kidneys tones - started Phentermine 15 mg daily at weight of 263, current weight is 214 - currently on Phentermine 30 mg daily, will continue for maximum of 1 year from initiation - continue current therapy since she is progressively losing weight Assessment & Plan (07/30/2023 9:25 AM ENDOSCOPE TECHNICIAN): Wt Readings from Last 3 Encounters: 07/30/23 99.8 kg (220 lb) 07/09/23 102.5 kg (226 lb) 05/09/23 108.9 kg (240 lb) Body mass index is 40.24 kg/m . - chronic condition, not at goal but improving, weight loss noted - BMI Follow-up includes: nutrition counseling, exercise counseling and education provided - has tried diet changes, lifestyle modifications for over 6 months without significant success - one of her main issues is food craving and overeating, at times uses food for comfort, at times endorses binge eating - No hx of seizures, no hx of kidneys tones - started Phentermine 15 mg daily at weight of 263, current weight is 220 - currently on Phentermine 30 mg daily - continue current therapy since she is progressively losing weight Assessment & Plan (07/09/2023 11:53 AM CDT): Wt Readings from Last 3 Encounters: 07/09/23 102.5 kg (226 lb) 05/09/23 108.9 kg (240 lb) 04/08/23 115.3 kg (254 lb 3.2 oz) Body mass index is 41.34 kg/m . - chronic condition, not at goal but improving, significant weight loss noted - BMI Follow-up includes: nutrition counseling, exercise counseling and education provided - interested in weight loss medication - has tried diet changes, lifestyle modifications for over 6 months without significant success - one of her main issues is food craving and overeating, at times uses food for comfort, at times endorses binge eating - No hx of seizures, no hx of kidneys tones - started Phentermine 15 mg daily at weight of 263, current weight is 226 - currently on Phentermine 30 mg daily - continue current therapy since she is progressively losing weight Assessment & Plan (05/09/2023 10:52 AM CDT): Wt Readings from Last 3 Encounters: 05/09/23 108.9 kg (240 lb) 04/08/23 115.3 kg (254 lb 3.2 oz) 03/06/23 119.3 kg (263 lb) Body mass index is 43.9 kg/m . - chronic condition, not at goal but improving, weight loss noted - BMI Follow-up includes: nutrition counseling, exercise counseling and education provided - interested in weight loss medication - has tried diet changes, lifestyle modifications for over 6 months without significant success - one of her main issues is food craving and overeating, at times uses food for comfort, at times endorses binge eating - No hx of seizures, no hx of kidneys tones - started Phentermine 15 mg daily at weight of 263 - currently on Phentermine 30 mg daily - continue current therapy Assessment & Plan (04/08/2023 11:03 AM CDT): HPI: Condition is improving, but not at goal goal BMI <30 A&P: Healthy, high-protein, lower carbohydrate, lower fat lifestyle and exercise for 150min/week recommended Recommend tracking everything you put in your mouth on an [employer] like [employer] -patient is down 9 lbs since starting on the [place]termine [place] instances of [place] noted -increase to phentermine 30 mg daily. Script sent. -follow up in 1 month with PCP Assessment & Plan (03/06/2023 12:23 PM CDT): Wt Readings from Last 3 Encounters: 03/06/23 119.3 kg (263 lb) 02/15/23 118.8 kg (262 lb) 11/05/22 123.8 kg (273 lb) Body mass index is 48.1 kg/m . - chronic condition, not at goal - BMI Follow-up includes: nutrition counseling, exercise counseling and education provided - interested in weight loss medication - has tried diet changes, lifestyle modifications for over 6 months without significant success - one of her main issues is food craving and overeating, at times uses food for comfort, at times endorses binge eating - No hx of seizures, no hx of kidneys tones - start Phentermine 15 mg daily and follow up in 30 days Assessment & Plan (02/24/2023 3:34 PM CDT): Wt Readings from Last 3 Encounters: 02/15/23 118.8 kg (262 lb) 11/05/22 123.8 kg (273 lb) 07/16/21 117 kg (258 lb) Body mass index is 47.92 kg/m . - chronic condition, not at goal - BMI Follow-up includes: nutrition counseling, exercise counseling and education provided - interested in weight loss medication - has tried diet changes, lifestyle modifications for over 6 months without significant success - one of her main issues is food craving and overeating, at times uses food for comfort, at times endorses binge eating - No hx of seizures, no hx of kidneys tones PTSD (post-traumatic stress disorder) 02/15/2023 Assessment & Plan (03/06/2023 1:35 PM CDT): - chronic, not at goal - reports past history of PTSD (from childhood trauma), anxiety, depression and bipolar disorder - used to do counseling via [facility] in remote past but would like in person counseling - currently not on any medications - at times gets depressed mood but feels like she is functioning well without additional help - she is interested in counseling/therapy at first, provided a location to seek help in this matter Assessment & Plan (02/24/2023 3:25 PM CDT): - chronic, stable - reports past history of PTSD (from childhood trauma), anxiety, depression and bipolar disorder - used to do counseling via [facility] in remote past - currently not on any medications - at times gets depressed mood but feels like she is functioning well without additional help REGINE (generalized anxiety disorder) 02/15/2023 Overview (06/25/2024): Managed by Psychiatry Assessment & Plan (06/25/2024 9:50 AM CDT): - chronic condition - has diagnosis of depression, anxiety, Bipolar disorder - depression and depression, mood instability not at goal - reports past history of PTSD (from childhood trauma), anxiety, depression and questionable bipolar disorder which she is being evaluated for along with ADHD - used to do [facility] via [facility], she is now doing counseling through a j[facility]ism funded program - once a week - currently not on any medications but would like assistance with it - has not been on medication in 5-7 years and only was on medications briefly - hx of hospitalization for self harm attempt at age 15 - has been on Prozac 20 mg daily in past but no longer, no longer on Topamax 50 mg daily - currently on Abilify 15 mg daily and Wellbutrin - at times has alcohol overuse and over eating with emotional changes - she has had period of times that she has stopped her medications several times which she is aware of the issue in bipolar disorder --> as a results of this her Abilify will be changed into an injectable medication - Continue current management per psychiatry Assessment & Plan (01/12/2024 10:38 PM CDT): - chronic condition - depression is better controlled - anxiety is not adequately controlled, worse - reports past history of PTSD (from childhood trauma), anxiety, depression and questionable bipolar disorder which she is being evaluated for along with ADHD - used to do [facility] via [facility], she is now doing counseling through a [facility]ism funded program - once a week - currently not on any medications but would like assistance with it - has not been on medication in 5-7 years and only was on medications briefly - hx of hospitalization for self harm attempt at age 15 - currently on Prozac 20 mg daily, started on last visit with big improvement in depression, she is also on Topamax 50 mg daily, Abilify 5 mg nightly - anxiety is still not at goal - Continue current management per psychiatry Assessment & Plan (09/29/2023 10:33 PM ENDOSCOPE TECHNICIAN): - chronic condition - depression is better controlled - anxiety is not adequately controlled, worse - reports past history of PTSD (from childhood trauma), anxiety, depression and questionable bipolar disorder - used to do counseling via [facility], she is now doing counseling through a [facility] funded program - once a week - currently not on any medications but would like assistance with it - has not been on medication in 5-7 years and only was on medications briefly - hx of hospitalization for self harm attempt at age 15 - currently on Prozac 20 mg daily, started on last visit with big improvement in depression - anxiety is still not at goal - has an appointment with a psychiatrist at October 10 in [facility] via her Therapist (states her therapist has a diagnosis for her that she can not treat her for it, has been told she may have ADHD as well by her therapist) - given she is about to see psychiatrist do not recommend initiation a new medication at this time for her anxiety, continue current management Assessment & Plan (07/30/2023 12:43 PM ENDOSCOPE TECHNICIAN): - chronic, worse - reports past history of PTSD (from childhood trauma), anxiety, depression and questionable bipolar disorder - [facility], she is now doing counseling through a jainism funded program - currently not on any medications but would like assistance with it - has not been on medication in 5-7 years and only was on medications briefly - hx of hospitalization for self harm attempt at age 15 - start Prozac 20 mg daily, can take 10 mg for 2 weeks at first - follow up in 6 weeks Assessment & Plan (05/09/2023 12:54 PM CDT): - chronic, stable, with persistent symptoms - reports past history of PTSD (from childhood trauma), anxiety, depression and bipolar disorder - used to do counseling via [facility] in remote past but would like in person counseling - currently not on any medications - at times gets depressed mood but feels like she is functioning well without additional help - recommend counseling - continue current management at this time, not affected with phentermine use Assessment & Plan (03/06/2023 12:23 PM CDT): - chronic, not at goal - reports past history of PTSD (from childhood trauma), anxiety, depression and bipolar disorder - used to do counseling via [facility] in remote past but would like in person counseling - currently not on any medications - at times gets depressed mood but feels like she is functioning well without additional help - she is interested in counseling/therapy at first, provided a location to seek help in this matter Assessment & Plan (02/24/2023 3:25 PM CDT): - chronic, stable - reports past history of PTSD (from childhood trauma), anxiety, depression and bipolar disorder - used [facility] do [facility] past - currently not on any medications - at times gets depressed mood but feels like she is functioning well without additional help Resolved Problems Problem Noted Date Diagnosed Date Resolved Date Class 2 obesity due to exces s calories with body mass index (BMI) of 39.0 to 39.9 in adult 10/04/2023 01/12/2024 Assessment & Plan (12/27/2023 8:46 AM CDT): Wt Readings from Last 3 Encounters: 12/27/23 97.5 kg (214 lb 14.4 oz) 10/04/23 96.6 kg (212 lb 14.4 oz) 09/24/23 97.5 kg (214 lb 14.4 oz) Body mass index is 39.3 kg/m . - chronic condition, not at goal - BMI Follow-up includes: nutrition counseling, exercise counseling and education provided - Recommend to exercise at least 30 minutes moderate to vigorous exercise most days of the week. (minimum 150 minutes weekly) Term 11/05/2022 02/15/2023 Delivery with history of section 09/11/2022 02/15/2023 Overview (09/27/2022): Added automatically from request for surgery [id number] Subchorionic hematoma in first trimester 09/21/2019 02/15/2023 Assessment & Plan (09/22/2019 9:41 AM ENDOSCOPE TECHNICIAN): Patient is 6 weeks , noted vaginal bleeding post op OB/ SENIOR BUSINESS BROKER consulted SSE performed with moderate amount of dark red blood in vault (approximately 15-20 cc total in vault and on alfonso pad in bed). Cervix not fully visualized, unable to access if os closed, given patient w/ difficulty tolerating exam. Bimanual exam attempted, unable to palpate cervix. 09/21 Transvaginal ultrasound - IUP at 5w6d based on CRL with positive heart motion. A subchorionic hemorrhage of 12mm was visualized. Acute cholecystitis due to biliary calculus 09/18/2019 02/15/2023 Overview (09/19/2019): Added automatically from request for surgery [id number] Assessment & Plan (09/21/2019 11:06 AM ENDOSCOPE TECHNICIAN): 09/20: OR for lap rubi; very inflamed and oozy; no NSAIDS - CLD and ADAT - stop Zosyn; pain control 09/21 provided a low fat diet Immunizations Immunization Administration Dates Next Due DTaP 06/07/2005, 1,07/07/1999,04/27,02/23/1999 H1N1 All Forms 01/23/2010 HPV, Unspecified 01/23/2010,04/01/2009, 9 Hep A, Ped Unspecified 10/10/2006,03/08/2006 Hep B, Adolescent or Pediatric 0,07/07/1999,04/27/1999,01/20,1998 HiB 12/12/2000, 9,04/27/1999,02/23 IPV 06/07/2005, 1,04/27/1999,02/23 Influenza Nasal, Unspecified 06/07/2011 Influenza, Live, Intranasal, Quadrivalent 07/15/2013 Influenza, Split 08/15/2010 Influenza, Unspecified 06/25/2024(Deferr ed: Patient Refused),07/09/2023(Deferred: Patient Refused),06/09/2022(Deferred: Patient Refused) Influenza, Whole 07/11/2006 MMR 11/03/2020(Deferred: No longer needed),06/07/2005,03/05/2000,01/04/20 00 Meningococcal Conjugate (Menveo) 11/14/2015,04/09 Pneumococcal Conjugate 7-Valent 12/12/2000 Tdap 10/06/2020,11/18/2017,12/24/2008 Varicella 12/24/2008,01/04/2000 Social History Tobacco Use Types Packs/Day Years Used Date Smoking Tobacco: Every Day Cigarettes Last attempted to quit: 12/31/2022 Vaping Started: 12/31 Smokeless Tobacco: Never Tobacco Cessation:Ready to Q uit: No; Counseling Given: Yes Alcohol Use Standard Drinks/Week Comments Not Currently 0 (1 standard drink = 0.6 oz pur e alcohol) last use 09/08/2019 Social Connection and Isolat ion Panel [NHANES] Answer Date Recorded In a typical week, how many times do you talk on the phone with family, friends, or neighbors? More than three times a week 11/05/2022 How often do you get togethe r with friends or relatives? More than three times a week 11/05/2022 How often do you attend chur or voodoo services? More than 4 times per year 11/05/2022 Do you belong to any clubs o r organizations such as jainism groups, unions, fraternal or athletic groups, or school groups? Yes 11/05/2022 How often do you attend meet ings of the clubs or organizations you belong to? 1 to 4 times per year 11/05/2022 Marital Status Not on file 11/05/2022 AUDIT-C Answer Date Recorded Q1: How often do you have a drink containing alc ohol? Monthly or less 06/25/2024 Q2: How many drinks containi ng alcohol do you have on a typical day when you are drinking? 1 or 2 06/25/2024 Q3: How often do you have si x or more drinks on one occasion? Never 06/25/2024 Overall Financial Resource Strain (CARDIA) Answe r Date Recorded How hard is it for you to pa y for the very basics like food, housing, medical care, and heating? Not hard at all 11/05/2022 PHQ-2 Answer Date Recorded PHQ-2 Total Score (If total score is 3 or more points, staff should administer the PHQ-9) 0 06/25/2024 [facility] - Occupational Stress Questionnaire Answer Date Recorded Do you feel stress - tense, restless, nervous, or anxious, or unable to sleep at night because your mind is troubled all the time - these days? Not at all 11/05/2022 Exercise Vital Sign Answer Date Recorde d On average, how many days pe r week do you engage in moderate to strenuous exercise (like a brisk walk)? 4 days 11/05/2022 On average, how many minutes do you engage in exercise at this level? 30 min 11/05/2022 Hunger Vital Sign Answer Date Recorded Within the past 12 months, y ou worried that your food would run out before you got the money to buy more. Never true 11/05/19 23 Within the past 12 months, t he food you bought just didn't last and you didn't have money to get more. Never true 11/05/2022 PRAPARE - Transportation Answer Date Re corded In the past 12 months, has l ack of transportation kept you from medical appointments or from getting medications? No 10/11 In the past 12 months, has l ack of transportation kept you from meetings, work, or from getting things needed for daily living? No 11/05/2022 Housing Stability Vital Sign Answer Darryl e Recorded In the last 12 months, was t here a time when you were not able to pay the mortgage or rent on time? No 11/05/2022 In the last 12 months, how many places have you lived? 1 11/05/2022 In the last 12 months, was t here a time when you did not have a steady place to sleep or slept in a alf (including now)? No 11/05/2022 Personal Safety Answer Date Recorded Getting School Help Needed Denies 08/24 Comments No Sex and Gender Information Value Date Recorded Sex Assigned at Not on file Legal Sex Female 2:46 PM ENDOSCOPE TECHNICIAN Gender Identity Not on file Sexual Orientation Not on file Last Filed Vital Signs Vital Sign Reading Time Taken Comments Blood Pressure 126/84 06/25/2024 9:14 AM CDT Pulse 98 06/25/2024 9:14 AM CDT Temperature 36.8 C (98.2 F) 06/25/2024 9:14 AM CDT Respiratory Rate 16 06/25/2024 9:14 AM CDT Oxygen Saturation 98% 06/25/2024 9:14 AM CDT Inhaled Oxygen Concentration - - Weight 119.3 kg (263 lb 1.6 oz) 06/25/2024 9:14 AM CDT Height 157.5 cm (5' 2.01 ) 06/25/2024 9:14 AM CD T Body Mass Index 48.11 06/25/2024 9:14 AM CDT Plan of Treatment Not on file Procedures Procedure Name Priority Date/Time Associated Diagnosis Comments HEPATITIS C ANTIBODY Routine 02/15/2023 10:27 AM CDT Morbid obesity with BMI of 45.0-49.9, adult (HCC) from Last 3 Months or Most Recently Relevant to Health Maintenance Results * Hepatitis C antibody (02/15/2023 10:27 AM CDT) Hep C Ab Nonreactive Nonreactive [facility]) Comment: Interpretive Data Nonreactive: Antibodies to HCV not detected. Does NOT exclude the possibility of recent exposure to HCV. Equivocal: Equivocal for HCV antibodies. Supplemental molecular testing will be automatically performed to determine infection status in accordance with current CDC screening recommendations. Reactive: Positive for HCV antibodies. This may represent current or past HCV infection. Supplemental molecular testing will be automatically performed to determine current infection status in accordance with current CDC screening recommendations. Interpretive data was last revised on 2019. Testing performed by: [facility], [address] [place] [address]., [id number] Blood 02/15/2023 10:2 7 AM CDT 02/15/2023 5:47 PM CDT Rah Hein MD LAB MICROBIOLOGY - [facility] ORDERABLES Final Result [facility] 1 [facility] [place] [address] from Last 3 Months or Most Recently Relevant to Health Maintenance Insurance [facility] Advance Directives For more information, please contact: [phone] * Full Code (Latest Code Status on File) Date Activated Date Inactivated Comments 11/05/2022 1:23 PM 11/07/2022 4:02 PM * Full Code Date Activated Date Inactivated Comments 11/05/2022 9:51 AM 11/05/2022 1:23 PM Full CPR in case of cardiopulmonary arrest * Full Code Date Activated Date Inactivated Comments 11/01/2020 1:14 PM 11/03/2020 9:05 PM * Full Code Date Activated Date Inactivated Comments 11/01/2020 10:00 AM 11/01/2020 1:14 PM Full CPR in case of cardiopulmonary arrest * Full Code Date Activated Date Inactivated Comments 09/19/2019 12:12 PM 09/22/2019 6:02 PM Care Teams Hotel Office Manager Relationship Specialty Start Date End Date Rah Hein MD PCP - General Family Medicine 02/15/23 Carlos Rizzo MD [address] [facility] [address] [address] Consulting Physician Obstetrics and Gynecology 02/15/23 Bernice Borrego NP [address] [place] [address] Nurse Practitioner Psychiatry 12/27/23
--- OUTSIDE RECORDS SUMMARY | 2025-02-02 15:58 | XMS_ITS | Encounter Summary ---
Author Organization [facility] Address [address] [place] [address] Phone Care Team Providers Care Translator Interpreter Name Role Phone Kristine Jara MD Primary Care Pr ovider Miscellaneous, Not In File Primary Care Provider Unavailable Rah Hein MD Primary Care Provider Carlos Rizzo MD Unavailable [phone] Bernice Borrego NP Unavailable [phone] Encounter Details Date Type Department Care Team (Latest Contact Info) Description 07/25/2017 Orders Only [facility] CONVERSION Scanning, Provider Social History Tobacco Use Types Packs/Day Years Used Date Smoking Tobacco: Never Smokeless Tobacco: Never Alcohol Use Standard Drinks/Week Comments No 0 (1 standard drink = 0.6 oz pur e alcohol) Comments Yes Sex and Gender Information Value Date Recorded Sex Assigned at Not on file Legal Sex Female 2:46 PM COMPUTER CONSULTANT Gender Identity Not on file Sexual Orientation Not on file documented as of this encounter Plan of Treatment Not on file documented as of this encounter Procedures Procedure Name Priority Date/Time Associated Diagnosis Comments OBSTETRIC/GYNECOLOGY ULTRASONOGRAPHY REPORT 07/31/2017 3:35 PM COMPUTER CONSULTANT OBSTETRIC/GYNECOLOGY ULTRASONOGRAPHY REPORT 07/25/2017 8:15 AM COMPUTER CONSULTANT documented in this encounter Results * OBSTETRIC/GYNECOLOGY ULTRASONOGRAPHY REPORT (07/31/2017 3:35 PM COMPUTER CONSULTANT) Anatomical Region Laterality Modality Ultrasound us Provider Scanning IMG OB US PROCEDURES Final Res ult * OBSTETRIC/GYNECOLOGY ULTRASONOGRAPHY REPORT (07/25/2017 8:15 AM COMPUTER CONSULTANT) Anatomical Region Laterality Modality Ultrasound us Provider Scanning IMG OB US PROCEDURES Final Res ult documented in this encounter Visit Diagnoses Not on filedocumented in this encounter Care Teams Translator Interpreter Relationship Specialty Start Date End Date Kristine Jara MD [address] [facility] [place] [address] PCP - General 01/07/17 10/27/19 Miscellaneous, Not In File PCP - General 10/28/19 02/14/23 Rah Hein MD PCP - General Family Medicine 02/15/23 Carlos Rizzo MD [address] [place] [address] [address] [place] [address] Consulting Physician Obstetrics and Gynecology 02/15/23 Bernice Borrego NP [address], [place] [address] Nurse Practitioner Psychiatry 12/27/23 documented as of this encounter
--- OUTSIDE RECORDS SUMMARY | 2025-02-02 15:58 | XMS_ITS ---
Author Organization [facility] Address [address] [place] [address] Phone Care Team Providers Care Mainframe Programmer Analyst Name Role Phone Unavailable Primary Care Provider [facility] Status:Enrolled (Active) Start date:10/07/2024 Enrollment date:10/07/2024 Related social drivers of health:Intimate Partner Violence, Social Connections, Alcohol Use, Tobacco Use, Financial Resource Strain,Depression, Stress, Physical Activity, Food Insecurity, Transportation Needs, Housing Stability, Utilities Continued Care and Services Coordination
--- OUTSIDE RECORDS SUMMARY | 2025-02-02 15:58 | XMS_ITS | CONTINUITY OF CARE DOCUMENT ---
Author Name carlos gonzalez Address Unknown Organization [facility] Address [address] [place] [address] Phone [phone] Care Team Providers Care Central Supply Nurse Name Role Phone Lawrence Gee MD Unavailable [phone] Lawrence Gee MD Unavailable [phone] INSURANCE PROVIDERS Payer name Policy type / Coverage type [employer] ID [employer] MEDICAID Medicaid [id number]
--- OUTSIDE RECORDS SUMMARY | 2025-02-02 15:58 | XMS_ITS | Clinical Summary ---
Author Organization [facility] Address [address] [place] [address] Care Team Providers Care Edi Architect Name Role Phone Rah Heni MD Primary Care Provider Carlos Rizzo MD Unavailable [phone] Bernice Borrego NP Unavailable [phone] Allergies Active Allergy Reactions Criticality Noted [...] she is now doing counseling through a methodist funded program - once a week - [...] 10/04/2023 Assessment & Plan (10/04/2023 1:47 PM ASIC VERIFICATION ENGINEER): -new complaint, acute -patient reports she 1st [...] 10/04/2023 Assessment & Plan (10/04/2023 1:50 PM ASIC VERIFICATION ENGINEER): -new complaint, chronic -patient reports numbness and [...] younger brothers - established with psychiatry at [facility] but was told she should be off her phentermine as well for better evaluation - see plan under obesity for phentermine dose change Assessment & Plan (09/29/2023 10:34 PM ASIC VERIFICATION ENGINEER): - concern for ADHD in patient - [...] she is now doing counseling through a methodist funded program - once a week - [...] she is now doing counseling through a methodist funded program - once a week - [...] psychiatry Assessment & Plan (09/24/2023 12:02 PM ASIC VERIFICATION ENGINEER): - chronic condition - depression is better controlled - anxiety is not adequately controlled, worse - reports past history of PTSD (from childhood trauma), anxiety, depression and questionable bipolar disorder - used to do [facility] via [facility], she is now doing counseling through a [facility] funded program - once a week - [...] with a psychiatrist at October 10 in [facility] via her Therapist (states her therapist has a diagnosis for her that she can not treat her for it, has been told she may have ADHD as well by her therapist) - given she is about to see psychiatrist do not recommend initiation a new medication at this time for her anxiety, continue current management Assessment & Plan (07/30/2023 12:43 PM ASIC VERIFICATION ENGINEER): - chronic, worse - reports past history of PTSD (from childhood trauma), anxiety, depression and questionable bipolar disorder - used to do counseling via [facility], she is now doing counseling through a [facility]ist funded program - currently not on any [...] away, saving up money. Discussed risk of jail NSAID use. Vapes nicotine containing substance 02/24/2023 [...] medication Assessment & Plan (09/24/2023 12:02 PM ASIC VERIFICATION ENGINEER): Wt Readings from Last 3 Encounters: 09/24/23 [...] weight Assessment & Plan (07/30/2023 9:25 AM ASIC VERIFICATION ENGINEER): Wt Readings from Last 3 Encounters: 07/30/23 [...] in your mouth on an edgardo like [employer] / [employer] -patient is down 9 lbs since starting [...] she is now doing counseling through a methodist funded program - once a week - [...] she is now doing counseling through a methodist funded program - once a week - [...] psychiatry Assessment & Plan (09/29/2023 10:33 PM ASIC VERIFICATION ENGINEER): - chronic condition - depression is better controlled - anxiety is not adequately controlled, worse - reports past history of PTSD (from childhood trauma), anxiety, depression and questionable bipolar disorder - used to do [facility] via [facility], she is now doing counseling through a methodist funded program - once a week - [...] with a psychiatrist at October 10 in [facility] via her Therapist (states her therapist has a diagnosis for her that she can not treat her for it, has been told she may have ADHD as well by her therapist) - given she is about to see psychiatrist do not recommend initiation a new medication at this time for her anxiety, continue current management Assessment & Plan (07/30/2023 12:43 PM ASIC VERIFICATION ENGINEER): - chronic, worse - reports past history of PTSD (from childhood trauma), anxiety, depression and questionable bipolar disorder - [facility], she is now doing counseling through a [facility] funded program - currently not on any [...] disorder - [facility] - currently not on [...] (09/27/2022): Added automatically from request for surgery [id number] Subchorionic hematoma in first trimester 09/21/2019 02/15/2023 Assessment & Plan (09/22/2019 9:41 AM ASIC VERIFICATION ENGINEER): Patient is 6 weeks , noted vaginal bleeding post op OB/ METHANE GAS COLLECTION SYSTEM OPERATOR consulted SSE performed with moderate amount of [...] (09/19/2019): Added automatically from request for surgery [id number] Assessment & Plan (09/21/2019 11:06 AM ASIC VERIFICATION ENGINEER): 09/20: OR for lap rubi; very inflamed [...] Conjugate 7-Valent 12/12/2000 Tdap 10/06/2020,11/18/2017,12/24/2008 Varicella 12/24/2008,01/04/2000 Surgical History Surgery Date Site/Laterality Comments SECTION LAPAROSCOPIC CHOLECYSTECTOMY Medical History Medical History Date Comments Herpes HSV 1+ Obesity Anxiety Class 2 obesity due to exces s calories with body mass index (BMI) of 39.0 to 39.9 in adult Social History Tobacco Use Types Packs/Day Years [...] week 11/05/2022 How often [facility] you attend [facility] services? More than 4 times per year 11/05/2022 Do you belong to any clubs o r organizations such as methodist groups, unions, fraternal or athletic groups, or [...] staff should administer the PHQ-9) 0 06/25/2024 [facility] - Occupational Stress [...] place to sleep or slept in a halfway (including now)? No 11/05/2022 Personal Safety Answer Date Recorded Getting School Help Needed Denies 08/24 Comments No Sex and Gender Information Value Date Recorded Sex Assigned at Not on file Legal Sex Female 2:46 PM ASIC VERIFICATION ENGINEER Gender Identity Not on file Sexual Orientation Not on file Obstetrics History Para Term AB IAB SAB Ectopic Multiple Livin g Live Births 7 3 3 4 1 3 0 3 3 Date Outcome GA Total Labor Labor/2nd/3rd Weight Sex Type Anes PTL Deborah A1 A5 Name Clin 2017 IAB TAB 2017 Term 40w 0d 2h 01m 2h 01m 3.657 kg (8 lb 1 oz) F CS-LT ranv Spinal N Livin g 8 9 [facility] Reynaldo Carballo MD Complications:Other (Comment ) Delivery Location:[facility] ([facility]) SAB 2019 SAB 9w0 d 2020 Term 39w 0d 0h 01m 0h 01m 3.829 kg (8 lb 7.1 oz) M CS-LT ranv Spinal N Livin g 8 9 [facility], Noemi Medel MD Complications:None Delivery Location:[facility] ([facility] PROCEDURE) SAB 2022 Term 39w 1d 0h 02m 0h 02m 3.08 kg (6 lb 12.6 oz) M C-Sec tion Spinal N Livin g [address] [facility] [address] [facility] No[facility] Medel [facility] Complications:None Delivery Location:[facility] ([facility] PROCEDURE) Last Filed Vital Signs Vital Sign Reading [...] 06/25/2024 9:14 AM CDT Plan of Treatment Health Maintenance Due Date Last Done Comments Cervical Cancer Screening 1998 Pneumococcal vaccine <65 (1 of 1 - PPSV23) 2004 12/12/2000 Influenza Vaccine (Season Ended) 2025 07/15/2013, 06/07/2011, 08/15/2010, Additional history exists Depression Screening 06/25/2025 06/25/2024, 12/27/2023, 10/04/2023, Additional history exists Regular Well Visit/Exam 18-64 06/25/2025 06/25/2024, 02/15/2023 DTaP/Tdap/Td Vaccine (9 - Td or Tdap) 10/06/2030 10/06/2020, 11/18/2017, 12/24/2008, Additional history exists Hepatitis B Screening Completed 10/05/1999 , 07/07/1999, 04/27/1999, Additional history exists Varicella Vaccines Completed 12/24/2008, 01/04/2000 HPV Vaccines Completed 01/23/2010, 03/10, 12/24/2008 Hepatitis C Screening Completed 02/15/2023 Procedures Procedure Name Priority Date/Time Associated Diagnosis Comments HEPATITIS C ANTIBODY Routine 02/15/2023 10:27 AM CDT Morbid obesity with BMI of 45.0-49.9, adult (HCC) from Last 3 Months or Most Recently Relevant to Health Maintenance Results * Hepatitis C antibody (02/15/2023 10:27 AM CDT) Hep C Ab Nonreactive Nonreactive [facility]) Comment: Interpretive Data Nonreactive: Antibodies to HCV [...] last revised on 2019. Testing performed by: [facility], [address] [place] [address], [place]., [address] Blood 02/15/2023 10:2 7 AM CDT 02/15/2023 5:47 PM CDT us Rah Hein MD LAB MICROBIOLOGY - [facility] ORDERABLES Final Result [facility]) 1 [facility] Department [place] [address] from Last 3 Months or Most Recently Relevant to Health Maintenance Insurance [facility] Advance Directives For more information, please contact: [phone] * Full Code (Latest Code Status on [...] 12:12 PM 09/22/2019 6:02 PM Care Teams Edi Architect Relationship Specialty Start Date End Date Rah Hein MD PCP - General Family Medicine 02/15/23 Carlos Rizzo MD [address] [place] [address] [address] [address] Consulting Physician Obstetrics and Gynecology 02/15/23 Bernice Borrego NP [address] [address] Nurse Practitioner Psychiatry 12/27/23
--- OUTSIDE RECORDS SUMMARY | 2025-02-02 15:58 | XMS_ITS | Clinical Summary ---
Author Organization [facility] Address [address] [place] [address] Phone Care Team Providers Care Truck Driver Heavy Name Role Phone Unavailable Primary Care Provider Unavailabl e Allergies Active Allergy Reactions Criticality Noted Date Comments Red Dye #40 (Allura Red) Unknown 09/18/2019 Shellfish Allergy Rash Medium 07/29/2020 Medications ibuprofen (MOTRIN) 800 MG TabletIndicatio ns:Dental infection Take 1 Tablet by mouth every 8 hours. 270 Tablet 3 1 Active Additional Information Patient not taking.Reported on 06/09/2021 sertraline (ZOLOFT) 50 MG TabletIndicatio ns: depression Take 1 Tablet by mouth daily. 30 Tablet 5 1 Active Active Problems No known active problems Immunizations Immunization Administration Dates Next Due DTAP VACCINE 06/07/2005, 1,07/07/1999,04/27,02/23/1999 H1N1 Flu, Unspecified Formulation 01/23/2010 Hepatitis A, Pediatric, Unsp ecified Formulation 10/10/2006,03/08/2006 Hepatitis B Vaccine, Pediatric/adolescent 10/05/1999,07/07/1999,04/27/1999,01/20,1998 Hib Vaccine,unspecified Formulation 01/2001,07/07/1999,04/27/1999,02/23 Hpv, Unspecified Formulation 01/23/2010,04/01/20 09,12/24/2008 Inactivated Polio Vaccine 06/07/2005,01/2001,04/27/1999,02/23 Influenza Vaccine Quadrivalent Nasal 07/15/2013 Influenza Virus Vaccine, Whole Virus 07/11/2006 MMR Vaccine 06/07/2005,03/05/2000,01/04/2000 Meningococcal MCV4O 11/14/2015,11/14/2015,2009 Pneumococcal Vaccine Peds - 7 Valent 12/12/2000 TDAP Vaccine 10/06/2020,12/24/2008 Varicella Vaccine Live 12/24/2008,01/04/2000 Family History Medical History Relation Name Comments Schizophrenia Brother Drug Abuse Father Drug Abuse Mother Relation Name Status Comments Brother Alive Father Mother Social History Tobacco Use Types Packs/Day Years Used Date Smoking Tobacco: Former Cigarettes 0.5 0.5 Smokeless Tobacco: Never Tobacco Cessation:Counseling Given: No Alcohol Use Standard Drinks/Week Comments Not Currently 0 (1 standard drink = 0.6 oz pur e alcohol) PHQ-2 Answer Date Recorded Total Score - Questions 1-9 3 03/2021 Education Answer Date Recorded What is the highest level of school you have completed or the highest degree you have received? 10th grade 09/27/2020 Sexually Active Control Partners Comments Yes None Male Comments Unknown Sex and Gender Information Value Date Recorded Sex Assigned at Not on file Legal Sex Female 10:30 PM CDT Gender Identity Not on file Sexual Orientation Not on file Last Filed Vital Signs Vital Sign Reading Time Taken Comments Blood Pressure 118/74 06/09/2021 2:21 PM CDT Pulse 84 06/09/2021 2:21 PM CDT Temperature 36.5 C (97.7 F) 06/09/2021 2:21 PM CDT Respiratory Rate 16 06/09/2021 2:21 PM CDT Oxygen Saturation 99% 06/09/2021 2:21 PM CDT Inhaled Oxygen Concentration - - Weight 118.3 kg (260 lb 12.8 oz) 06/09/2021 2:21 PM CDT Height 157.5 cm (5' 2 ) 06/09/2021 2:21 PM CDT Body Mass Index 47.7 06/09/2021 2:21 PM CDT Plan of Treatment Health Maintenance Due Date Last Done Comments Hepatitis C Virus (HCV) Screening 1998 Pap Smear 12/24/2019 Influenza Immunization (#1) 2024 07/15/2013, 0 01/23/2010 SARS-COV-2 Immunization ( - 2023- season) 2024 DTaP/Tdap/Td Immunization (8 - Td or Tdap) 10/06/2030 10/06/2020, 12/24/2008, 06/07/2005, Additional history exists Respiratory Syncytial Virus (RSV) Immunization (Adult) (1 - 1-dose 75+ series) 2073 Hepatitis B Immunization Completed 000, 07/07/1999, 04/27/1999, Additional history exists Pneumococcal Immunization Combined Aged Out 12/12/2000 No longer eligible based on patient's age to complete this topic Human Papillomavirus (HPV) Immunization Completed 01/23/2010, 04/01/2009, 12/24/2008 Meningococcal Immunization (ACWY) Completed 11/14/2015, 11/14/2015, 04/27/2010 Rotavirus Immunization Aged Out No lo nger eligible based on patient's age to complete this topic Insurance MEDICAID [place]
== END 2025-02-02 15:56 | disposition home or self-care (01) ==
LOC: ANHIMG 15:56
PROVIDERS: PCP Obstetrics & Gynecology; Visit Provider Obstetrics & Gynecology
DX: Z34.92 Encounter for supervision of normal pregnancy, unspecified, second trimester (principal); Z3A.19 19 weeks gestation of pregnancy
CPT/HCPCS: 76816

== ENCOUNTER 2025-05-28 15:01 | Outpatient (CLI) | payer OTHER, SELFPAY ==
--- NOTE | ~2025-05-28 | US_ITS ---
EXAMINATION: US OB follow up DATE: 05/28/2025 15:45 INDICATION: Supervision of normal during third trimester TECHNIQUE: Real-time ultrasound of the pelvis was performed. The interpreting radiologist was not present for the study. COMPARISON: None. FINDINGS: There is a single living fetus in vertex presentation. The placenta is anterior. heart rate is 137 beats per minute (bpm). The amniotic fluid index is 10.8 cm, which is normal (5th%-95%: 7.9-24.9 cm at 35 weeks estimated gestational age). The following biometric data were obtained: BPD: 8.8 cm -> 35 weeks 5 days Head circumference: 31.7 cm -> 35 weeks 5 days Abdominal circumference: 32.4 cm -> 36 weeks 2 days Femur length: 7.0 cm -> 35 weeks 6 days These measurements are concordant. Head circumference to abdominal circumference ratio: 0.98 (normal range 0.93-1.08). Estimated weight: 2829 g (+/-) 424 g or 6 lbs. 4 oz. (+/-) 15 oz. IMPRESSION: 1. Single living fetus in vertex presentation with heart rate of 137 bpm. 2. Normal amniotic fluid index of 10.8 cm. 3. Estimated weight is 55th percentile by Hadlock criteria when 06/26/2025 is used as the estimated date of delivery (KEYSHA). Please correlate with clinical information or earlier ultrasounds for most accurate KEYSHA. Reviewed, dictated and finalized at location A. IMPRESSION: 1. Single living fetus in vertex presentation with heart rate of 137 bpm. 2. Normal amniotic fluid index of 10.8 cm. 3. Estimated weight is 55th percentile by Hadlock criteria when 5 is used as the estimated date of delivery (KEYSHA). Please correlate with clinic al information or earlier ultrasounds for most accurate KEYSHA.
--- OUTSIDE RECORDS SUMMARY | 2025-05-28 15:08 | XMS_ITS | Clinical Summary ---
Author Organization [facility] Address [address] [place] [address] Care Team Providers Care Logistics Associate Name Role Phone Unavailable Primary Care Provider Unavailabl e Source Comments [facility] Scheduling Employee Scheduling Software,non-owned Affiliates and Associated Physician Practices is amultiple site organization consisting of ambulatory clinics and hospital sitesin [place], [place], [place] and [place]. This disclosure is being madepursuant to the Care Everywhere program and may not contain all information available regarding this patient. 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
--- OUTSIDE RECORDS SUMMARY | 2025-05-28 15:08 | XMS_ITS | Encounter Summary ---
Author Organization [facility] Address [address] [place] [address] Phone Care Team Providers Care Social Media Intern Name Role Phone Kristine Jara MD Primary Care Pr ovider Miscellaneous, Not In File Primary Care Provider Unavailable Rah Hein MD Primary Care Provider Carlos Rizzo MD Unavailable [phone] Bernice Borrego NP Unavailable [phone] Rah Hein MD Primary Care Provider Encounter Details Date Type Department Care Team [...] on file Legal Sex Female 2:46 PM GRANTS OFFICER Gender Identity Not on file Sexual Orientation Not on file documented as of this encounter Plan of Treatment Upcoming Encounters Date Type Department Care Team (Latest Contact Info) Description 06/21/2025 7:30 AM CDT Hospital Encounter [facility] [address] [place] [address] Carlos Rizzo MD [address] [place] [address] DR LANA Cuevas [address] [address] 06/21/2025 7:30 AM CDT - 06/21/2025 9:00 AM CDT Surgery [facility] [address] [place] [address] Carlos Rizzo MD [address] [place] [address] DR LANA SCOTT [address] [place] [address] REPEAT - LND ADD ON TUBAL LIGATION 01103 Scheduled Procedures Name Priority Associated Diagnoses Date/Ti me LND ADD ON TUBAL LIGATION REPEAT 80519 Delivery with history of section Encounter for female sterilization procedure 06/21/2025 7:30 AM CDT documented as of this encounter Procedures Procedure Name Priority Date/Time Associated Diagnosis Comments OBSTETRIC/GYNECOLOGY ULTRASONOGRAPHY REPORT 07/31/2017 3:35 PM GRANTS OFFICER OBSTETRIC/GYNECOLOGY ULTRASONOGRAPHY REPORT 07/25/2017 8:15 AM GRANTS OFFICER documented in this encounter Results * OBSTETRIC/GYNECOLOGY ULTRASONOGRAPHY REPORT (07/31/2017 3:35 PM GRANTS OFFICER) Anatomical Region Laterality Modality Ultrasound us Provider Scanning IMG OB US PROCEDURES Final Res ult * OBSTETRIC/GYNECOLOGY ULTRASONOGRAPHY REPORT (07/25/2017 8:15 AM GRANTS OFFICER) Anatomical Region Laterality Modality Ultrasound us Provider Scanning IMG OB US PROCEDURES Final Res ult documented in this encounter Visit Diagnoses Not on filedocumented in this encounter Care Teams Social Media Intern Relationship Specialty Start Date End Date Kristine Jara MD [address] [place] [address] PCP - General 01/07/17 10/27/19 Miscellaneous, Not In File PCP - General 10/28/19 02/14/23 Rah Hein MD PCP - General Family Medicine 02/15/23 02/16/25 Rah Hein MD [address] [facility] [address] [place] [address] PCP - General Family Medicine 02/17/25 Carlos Rizzo MD [address] SCHW[address]Z [facility] [address] [place] [address] Consulting Physician Obstetrics and Gynecology 02/15/23 Bernice Borrego NP [address] [place] [address] Nurse Practitioner Psychiatry 12/27/23 documented as of this encounter
--- OUTSIDE RECORDS SUMMARY | 2025-05-28 15:08 | XMS_ITS | Clinical Summary ---
Author Organization [facility] Address [address] [place] [address] Care Team Providers Care Sleever Name Role Phone Carlos Rizzo MD Unavailable [phone] Bernice Borrego NP Unavailable [phone] Rah Hein MD Primary Care Provider Allergies Active Allergy Reactions Criticality Noted Date [...] Active Problems Problem Noted Date Diagnosed Date Delivery with history of section 2024 Encounter for female sterilization procedure 12/2024 Bipolar affective disorder, current episode mixe d 06/25/2024 Overview (06/25/2024): Managed by Psychiatry Assessment & Plan (06/25/2024 10:03 AM CDT): - chronic condition - has diagnosis of depression, anxiety, Bipolar disorder - depression and depression, mood instability not at goal - reports past history of PTSD (from childhood trauma), anxiety, depression and Bipolar disorder - used to do counseling via [facility], she is now doing counseling through a orthodox funded program - once a week - [...] 10/04/2023 Assessment & Plan (10/04/2023 1:47 PM UPWARD BOUND DIRECTOR): -new complaint, acute -patient reports she 1st [...] 10/04/2023 Assessment & Plan (10/04/2023 1:50 PM UPWARD BOUND DIRECTOR): -new complaint, chronic -patient reports numbness and [...] younger brothers - established with psychiatry at [facility] but was told she should be off her phentermine as well for better evaluation - see plan under obesity for phentermine dose change Assessment & Plan (09/29/2023 10:34 PM UPWARD BOUND DIRECTOR): - concern for ADHD in patient - [...] she is now doing counseling through a orthodox funded program - once a week - [...] she is now doing counseling through a orthodox funded program - once a week - [...] psychiatry Assessment & Plan (09/24/2023 12:02 PM UPWARD BOUND DIRECTOR): - chronic condition - depression is better controlled - anxiety is not adequately controlled, worse - reports past history of PTSD (from childhood trauma), anxiety, depression and questionable bipolar disorder - used to do counseling via [facility], she is now doing counseling through a orthodox funded program - once a week - [...] with a psychiatrist at October 10 in [facility] via her Therapist (states her therapist has a diagnosis for her that she can not treat her for it, has been told she may have ADHD as well by her therapist) - given she is about to see psychiatrist do not recommend initiation a new medication at this time for her anxiety, continue current management Assessment & Plan (07/30/2023 12:43 PM UPWARD BOUND DIRECTOR): - chronic, worse - reports past history of PTSD (from childhood trauma), anxiety, depression and questionable bipolar disorder - used to do counseling via [facility], she is now doing counseling through a orthodox funded program - currently not on any [...] to avoid stomach upset. Only dental surgeon [facility] for her insurance is several hours away, saving up money. Discussed risk of halfway NSAID use. Vapes nicotine containing substance 02/24/2023 [...] cancer screening: n/a - control: on Nuvaring Class 3 severe obesity due t o [...] medication Assessment & Plan (09/24/2023 12:02 PM UPWARD BOUND DIRECTOR): Wt Readings from Last 3 Encounters: 09/24/23 [...] weight Assessment & Plan (07/30/2023 9:25 AM UPWARD BOUND DIRECTOR): Wt Readings from Last 3 Encounters: 07/30/23 [...] in your mouth on an edgardo like [employer] -patient is down 9 lbs since starting [...] she is now doing counseling through a orthodox funded program - once a week - [...] she is now doing counseling through a orthodox funded program - once a week - [...] psychiatry Assessment & Plan (09/29/2023 10:33 PM UPWARD BOUND DIRECTOR): - chronic condition - depression is better controlled - anxiety is not adequately controlled, worse - reports past history of PTSD (from childhood trauma), anxiety, depression and questionable bipolar disorder - used to do counseling via [facility], she is now doing counseling through a orthodox funded program - once a week - [...] with a psychiatrist at October 10 in [facility] via her Therapist (states her therapist has a diagnosis for her that she can not treat her for it, has been told she may have ADHD as well by her therapist) - given she is about to see psychiatrist do not recommend initiation a new medication at this time for her anxiety, continue current management Assessment & Plan (07/30/2023 12:43 PM UPWARD BOUND DIRECTOR): - chronic, worse - reports past history of PTSD (from childhood trauma), anxiety, depression and questionable bipolar disorder - used to do counseling via [facility], she is now doing counseling through a orthodox funded program - currently not on any [...] she is functioning well without additional help Comments Yes Resolved Problems Problem Noted Date Diagnosed Date [...] (09/27/2022): Added automatically from request for surgery [id number] Subchorionic hematoma in first trimester 09/21/2019 02/15/2023 Assessment & Plan (09/22/2019 9:41 AM UPWARD BOUND DIRECTOR): Patient is 6 weeks , noted vaginal bleeding post op OB/ TELEGRAPH MESSENGER consulted SSE performed with moderate amount of [...] (09/19/2019): Added automatically from request for surgery [id number] Assessment & Plan (09/21/2019 11:06 AM UPWARD BOUND DIRECTOR): 09/20: OR for lap rubi; very inflamed [...] alcohol) last use 09/08/2019 Social Connection and Isolation Panel Answer Date Recorded In a typical week, how many times do you talk on the phone with family, friends, or neighbors? More than three times a week 11/05/2022 How often do you get togethe r with friends or relatives? More than three times a week 11/05/2022 How often do you attend chur ch or quaker services? More than 4 times per year 11/05/2022 Do you belong to any clubs o r organizations such as orthodox groups, unions, fraternal or athletic groups, or [...] staff should administer the PHQ-9) 0 06/25/2024 [place] [employer] Occupat ional Health - Occupational Stress [...] place to sleep or slept in a long-term (including now)? No 11/05/2022 Personal Safety Answer Date Recorded Getting School Help Needed Denies 08/24 Comments Yes Sex and Gender Information Value Date Recorded Sex Assigned at Not on file Legal Sex Female 2:46 PM UPWARD BOUND DIRECTOR Gender Identity Not on file Sexual Orientation Not on file Obstetrics History Para Term AB IAB SAB Ectopic Multiple Livin g Live Births 8 3 3 4 1 3 0 3 3 Date Outcome GA Total Labor Labor/2nd/3rd Weight Sex Type Anes PTL Deborah A1 A5 Name Clin 2017 IAB TAB 2017 Term 40w 0d 2h 01m 2h 01m 3.657 kg (8 lb 1 oz) F CS-LT ranv Spinal N Livin g 8 9 YUE LAMBERT, [facility] Reynaldo Carballo MD Complications:Other (Comment ) Delivery Location:[facility] ([facility]) SAB 2019 SAB 9w0 d 2020 Term 39w 0d 0h 01m 0h 01m 3.829 kg (8 lb 7.1 oz) M CS-LT ranv Spinal N Livin g 8 9 YUE LAMBERT, Noemi Medel MD Complications:None Delivery Location:[facility] ([facility] PROCEDURE) SAB 2022 Term 39w 1d 0h 02m 0h 02m 3.08 kg (6 lb 12.6 oz) M C-Sec tion Spinal N Livin g 9 9 YUE ALVAREZADO Kaplan Geoffr ey Lowell, MD Complications:None Delivery Location:[facility] ([facility] PROCEDURE) Current Summary Episode Dates Number of Fetuses Estimated Date of Delivery 05/13/2025 - Present (05/28/2025) Unknown Dating Summary Based On KEYSHA GA Diff Last Menstrual Period on 05/16/2024 (Exact Date) 02/20/2025 Last Filed Vital Signs Vital Sign Reading [...] 9:14 AM CDT Height 157.5 cm (5' 2.01) 06/25/2024 9:14 AM CD T Body Mass Index 48.11 06/25/2024 9:14 AM CDT Plan of Treatment Upcoming Encounters Date Type Department Care Team (Latest Contact Info) Description 06/21/2025 7:30 AM CDT Hospital Encounter [facility] [address] [place] [address] Carlos Rizzo MD [address] LANA Cuevas [address] [place] [address] 06/21/2025 7:30 AM CDT - 06/21/2025 9:00 AM CDT Surgery [facility] [place] [address] [place] [address] Carlos Rizzo MD [address] LANA Cuevas [address] [place] [address] REPEAT - LND ADD ON TUBAL LIGATION 97997 Scheduled Procedures Name Priority Associated Diagnoses Date/Ti me LND ADD ON TUBAL LIGATION REPEAT 20762 Delivery with history of section Encounter for female sterilization procedure 06/21/2025 7:30 AM CDT Health Maintenance Due Date Last Done Comments Cervical Cancer Screening 1998 Pneumococcal vaccine <65 (1 of 1 - PPSV23, PCV20, or PCV21) 2004 12/12/2000 Influenza Vaccine (#1) 2025 3, 06/07/2011, 08/15/2010, Additional history exists Depression Screening [...] Hep C Ab Nonreactive Nonreactive GA BUCK ([place]) Comment: Interpretive Data Nonreactive: Antibodies to HCV [...] last revised on 2019. Testing performed by: [facility], [address] [place] [address]., [address] Blood 02/15/2023 10:2 7 AM CDT 02/15/2023 5:47 PM CDT Rah Hein MD LAB MICROBIOLOGY - [facility] ORDERABLES Final Result GA HEBER ([place]) [address] [facility] Department [place] [address] from Last 3 Months or Most Recently Relevant to Health Maintenance Insurance [facility] Advance Directives For more information, please contact: [phone] * Full Code (Latest Code Status on [...] 12:12 PM 09/22/2019 6:02 PM Care Teams Sleever Relationship Specialty Start Date End Date Rah Hein MD [address] [facility] [address] [place] [address] PCP - General Family Medicine 02/17/25 Carlos Rizzo MD [address] [place] [address] DR SCHWARTZ [facility] [address] [place] [address] Consulting Physician Obstetrics and Gynecology 02/15/23 Bernice Borrego NP [address], [place] [address] Nurse Practitioner Psychiatry 12/27/23
== END 2025-05-28 15:02 | disposition home or self-care (01) ==
PROVIDERS: PCP Family Medicine; Visit Provider Obstetrics & Gynecology
DX: Z34.92 Encounter for supervision of normal pregnancy, unspecified, second trimester (principal); Z3A.00 Weeks of gestation of pregnancy not specified
CPT/HCPCS: 76816